=== PATIENT | female | born 1985 | race Caucasian/White ===

== ENCOUNTER 2017-06-18 16:22 | Emergency (ER) | payer SELFPAY ==
[~2017-06-18] VITALS: Ht 157.5 cm; Wt 75.8 kg
[~2017-06-18 16:22] MED LIST: FERR256T PO; PREN1TAB31 PO
[2017-06-18 16:25] VITALS: Ht 157.5 cm; Wt 75.8 kg
[2017-06-18 17:23] LABS: BASOPHILS % 0.3 % (0.0-2.0); EOSINOPHILS # 0.3 10^3/ul (0.0-0.5); EOSINOPHILS % 2.9 % (0.0-7.0); HEMATOCRIT 37.3 % (37.0-47.0); HEMOGLOBIN 12.8 g/dl (12.0-16.0); LYMPHOCYTES # 2.8 10^3/ul (0.8-2.9); LYMPHOCYTES % 29.2 % (15.0-51.0); MEAN CORPUSCULAR HEMOGLOBIN 29.9 pg (29.0-33.0); MEAN CORPUSCULAR HGB CONC 34.3 g/dl (32.0-37.0); MEAN CORPUSCULAR VOLUME 87.1 fl (82.0-101.0); MEAN PLATELET VOLUME 9.3 fl (7.4-10.4); MONOCYTE # 0.8 10^3/ul (0.3-0.9); MONOCYTES % 7.8 % (0.0-11.0); NEUTROPHIL # 5.8 10^3/ul (1.6-7.5); NEUTROPHILS % 59.4 % (39.0-77.0); PLATELET COUNT 346 10^3/UL (140-415); RED BLOOD COUNT 4.28 10^6/ul (4.20-5.40); RED CELL DISTRIBUTION WIDTH 12.2 % (11.5-14.5); WHITE BLOOD COUNT 9.7 10^3/ul (4.8-10.8)
[2017-06-18 17:46] LABS: ADD UMIC YES; UR ASCORBIC ACID 40 mg/dL (NEGATIVE); UR BACTERIA FEW /HPF (NONE SEEN); UR BILIRUBIN (Dip) NEGATIVE (NEGATIVE); UR BLOOD (Dip) NEGATIVE (NEGATIVE); UR CLARITY CLOUDY (CLEAR); UR COLOR YELLOW (YELLOW); UR GLUCOSE (Dip) NEGATIVE (NEGATIVE); UR KETONES (Dip) NEGATIVE (NEGATIVE); UR LEUKOCYTE ESTERASE (Dip) NEGATIVE Leu/ul (NEGATIVE); UR MUCUS FEW /HPF (NONE SEEN); UR NITRITE (Dip) NEGATIVE (NEGATIVE); UR RBC 2 /HPF (0-5); UR SPECIFIC GRAVITY (Dip) 1.018 (1.003-1.030); UR SQUAMOUS EPITHELIAL CELL FEW /HPF (FEW); UR TOTAL PROTEIN (Dip) NEGATIVE (NEGATIVE); UR UROBILINOGEN (Dip) NEGATIVE (NEGATIVE)
--- NOTE | 2017-06-18 17:46 | RADRPT ---
PROCEDURE: OBSTETRICAL ULTRASOUND WITH ENDOVAGINAL IMAGES CLINICAL INDICATION: no FHT on doppler, viability TECHNIQUE: Multiple sonographic images of the pelvis were obtained utilizing a transabdominal and endovaginal technique. The images were reviewed on a PACS workstation. COMPARISON: None. LMP: 04/10/2017 FINDINGS: There is a single live intrauterine with heart rate of 179 beats per minute, mean sa c diameter of 4.06 cm, yolk sac, and crown-rump length of 2.97 cm which is consistent with a gestati onal age of 9 weeks, 6 days . The estimated date of delivery by ultrasound is 01/15/2018 . The estimated gestational age by LMP is 9 weeks, 6 days . The estimated date of delivery by LMP is 01/15/2018 . There is a heterogeneous hypoechoic and hypovascular lesion adjacent to the gestational sac measurin g 2.7 x 1.8 x 2.4 cm consistent with a subchorionic hemorrhage. The right ovary measures 3.6 x 1.5 x 1.7 cm. The left ovary is not identified. There is normal vascu lar flow in the right ovary. No significant ovarian lesions are seen. No significant pelvic free fluid is identified. IMPRESSION: Single live intrauterine consistent with a gestational age of 9 weeks, 6 days . The estimated date of delivery is 01/15/2018 . Dating by ultrasound is consistent with dating by LMP. Normal heart rate of 179 beats per minute. 2.7 cm subchorionic hemorrhage. Nonvisualization of the left ovary. RPTAT: EE Physician Lovely Date Time Electronically viewed and signed by Physician Lovely on 06/18/2017 17:46 /
--- NOTE | 2017-06-18 18:47 | ERD ---
ER Documentation Chief Complaint Chief Complaint Ultrasound was done in clinic, no heart beat. Follow up. 14 wks preg HPI 31-year-old female is sent here by her clinic for a OB ultrasound. Patient stated that she was told she is 14 weeks at the clinic, and they could not hear heart tone Doppler during her visit today. Patient is , she did not remember when her LMP was. Denies fever or chills. Denies pelvic pain. Denies vaginal bleeding. ROS All systems reviewed and are negative except as per history of present illness. Medications Home Meds Reported Medications Ferrous Gluconate (Iron) 256 Mg Tablet, 256 MG PO DAILY 06/01/13 Vits #90-Iron Fum-FA ( Formula) 1 Each Tablet, 1 EACH PO DAILY 06/01/13 Allergies Allergies: Coded Allergies: No Known Allergy (Unverified , NKA, 12/01/12) PMhx/Soc History of Surgery: Yes (HERNIA) Anesthesia Reaction: No Hx Neurological Disorder: No Hx Respiratory Disorders: No Hx Cardiac Disorders: No Hx Psychiatric Problems: No Hx Miscellaneous Medical Probl: No Hx Alcohol Use: No Hx Substance Use: No Hx Tobacco Use: No Physical Exam Vitals Vital Signs Date Time Temp Pulse Resp B/P Pulse Ox O2 Delivery O2 Flow Rate FiO2 06/18/17 16:25 99.1 88 18 125/72 100 Physical Exam General: Well-developed, well-nourished, conscious and coherent, in no distress Skin: Warm and dry without rash, good texture and turgor Head: Normocephalic without evidence of trauma Eyes: Sclera and conjunctivae normal; pupils equal, round, and reactive to light; extraocular movements are intact Chest: Normal AP diameter. Good expansion without retractions. Nontender. Lungs are clear to auscultate bilaterally with good tidal volume Heart: Regular rate and rhythm. No murmur, rub, or gallops heard Abdomen: Soft and nontender without masses, guarding, or rebound. Bowel sounds are active. No hepatosplenomegaly Back: Without spinal or CVA tenderness Pelvis: Nontender to palpation and stable to compression Extremities: Full range of motion. Good strength bilaterally. No clubbing, cyanosis, or edema. Peripheral pulses are intact. Sensation intact Neuro: Alert and oriented 4, GCS 15. Cranial nerves grossly intact. Motor and sensory exams nonfocal. Moves all extremities. Speech clear. Gait normal Result Diagram: 06/18/17 1712 Results 24 hrs Laboratory Tests Test 06/18/17 17:12 06/18/17 17:14 White Blood Count 9.710^3/ul Red Blood Count 4.2810^6/ul Hemoglobin 12.8g/dl Hematocrit 37.3% Mean Corpuscular Volume 87.1fl Mean Corpuscular Hemoglobin 29.9pg Mean Corpuscular Hemoglobin Concent 34.3g/dl Red Cell Distribution Width 12.2% Platelet Count 16678^3/UL Mean Platelet Volume 9.3fl Neutrophils % 59.4% Lymphocytes % 29.2% Monocytes % 7.8% Eosinophils % 2.9% Basophils % 0.3% Nucleated Red Blood Cells % 0.0/100WBC Neutrophils # 5.810^3/ul Lymphocytes # 2.810^3/ul Monocytes # 0.810^3/ul Eosinophils # 0.310^3/ul Basophils # 0.010^3/ul Nucleated Red Blood Cells # 0.010^3/ul Beta HCG, Quantitative 79742.0mIU/ml Urine Color YELLOW Urine Clarity CLOUDY Urine pH 6.0 Urine Specific [place] 1.018 Urine Ketones NEGATIVEmg/dL Urine Nitrite NEGATIVEmg/dL Urine Bilirubin NEGATIVEmg/dL Urine Urobilinogen NEGATIVEmg/dL Urine Leukocyte Esterase NEGATIVELeu/ul Urine Microscopic RBC 2/HPF Urine Microscopic WBC 4/HPF Urine Squamous Epithelial Cells FEW/HPF Urine Bacteria FEW/HPF Urine Mucus FEW/HPF Urine Hemoglobin NEGATIVEmg/dL Urine Glucose NEGATIVEmg/dL Urine Total Protein NEGATIVEmg/dl PROCEDURE: OBSTETRICAL ULTRASOUND WITH ENDOVAGINAL IMAGES CLINICAL INDICATION: no FHT on doppler, viability TECHNIQUE: Multiple sonographic images of the pelvis were obtained utilizing a transabdominal and endovaginal technique. The images were reviewed on a PACS workstation. COMPARISON: None. LMP: 04/10/2017 FINDINGS: There is a single live intrauterine with heart rate of 179 beats per minute, mean sac diameter of 4.06 cm, yolk sac, and crown-rump length of 2.97 cm which is consistent with a gestational age of 9 weeks, 6 days . The estimated date of delivery by ultrasound is 01/15/2018 . The estimated gestational age by LMP is 9 weeks, 6 days . The estimated date of delivery by LMP is 01/15/2018 . There is a heterogeneous hypoechoic and hypovascular lesion adjacent to the gestational sac measuring 2.7 x 1.8 x 2.4 cm consistent with a subchorionic hemorrhage. The right ovary measures 3.6 x 1.5 x 1.7 cm. The left ovary is not identified. There is normal vascular flow in the right ovary. No significant ovarian lesions are seen. No significant pelvic free fluid is identified. IMPRESSION: Single live intrauterine consistent with a gestational age of 9 weeks , 6 days . The estimated date of delivery is 01/15/2018 . Dating by ultrasound is consistent with dating by LMP. Normal heart rate of 179 beats per minute. 2.7 cm subchorionic hemorrhage. Nonvisualization of the left ovary. RPTAT: EE Physician Lovely Date Time Electronically viewed and signed by Physician Lovely on 06/18/2017 17:46 RA/ CC: DAVID RODGERS [employer] ENGINEERING CONSULTANT Procedures/MDM ED course: CBC: Unremarkable. Beta hC.0 UA: Unremarkable. Blood type: B+. RhoGAM is not indicated for patient. OB ultrasound: Single live intrauterine consistent with a gestational age of 9 weeks 6 days. heart rate 179 bpm. 2.5 cm subchorionic hemorrhage. Medical decision-making: Well-appearing 31-year-old female presented ED for OB ultrasound. She was told by the clinic that she was 14 weeks . However on OB ultrasound, it was determined that she is 9 weeks 6 days. I advised patient that it is not unusual to no hearing heart tones on Doppler at this gestational age. A subchorionic hemorrhage is noted on ultrasound, patient is Rh positive, RhoGam is not indicated. Patient is provided without testing results, and advised follow-up with her PCP. Medications on discharge: Tylenol. Follow-up: Primary care provider in 2-3 days or return to ED if worse. Departure Diagnosis: Primary Impression: Normal IUP (intrauterine ) on ultrasound Trimester: first trimester Qualified Code: Z34.91 - Normal intrauterine on ultrasound in first trimester Condition: Stable Patient Instructions: , Established, Normal Symptoms Referrals: [facility] Usted se coleman hecho un examen mdico de control que le indica que no est en gabe condicin que requiera tratamiento urgente en el Departamento de Emergencia. Un estudio ms profundo y el tratamiento de parker condicin pueden esperar sin ningn riesgo hasta que usted sea atendida/o en el consultorio de parker mdico o gabe cl anabelle. Es responsabilidad suya arreglar gabe tessie para el seguimiento del fritz. MANEJO DE CONDICIONES NO URGENTES EN EL FUTURO 1) Si usted tiene un mdico de atencin primaria: Usted debera llamar a parker mdico de atencin primaria antes de venir al departamento de emergencia. Despus de las horas de consultorio, parker doctor o parker asociado/a est disponible por telfono. El mdico o enfermero de tashia en el servicio telefnico puede asesorarle por mika medio para atender el problema, o fritz contrario se puede programar gabe tessie. 2) Si usted no tiene un mdico de atencin primaria: Llame al mdico o clnica de referencia que aparece abajo dmeetrice las horas de consultorio para hacer gabe tessie para que le vean. CLINICAS: [facility] [phone] [facility] [phone] [facility] [phone] [address] [facility]. [facility] [phone] [facility] [phone] [facility]. [phone] [address] [employer] [place] [id number] [facility] [address] [place] [address] OFFICE FAX , ELY[place] [address] [place] [address] [address] MAURICIO, [place] [address] [place] [address] DR OSB[place]NE, [facility] [address] [facility], [address], [facility] [address] [address] [facility] [address] [place] [address] [facility] [address] [place] [address] [phone] [facility] [address] - [address] PICKENS, [place] [address], [place] [address] DR VILLARREAL, IV[place] [address] [facility]. [address], [place] [address] [address] PUCKETT, FARID [address] [place] [address] Additional Instructions: Llame al doctor MAANA y candy gabe TESSIE PARA DENTRO DE 2-3 PACHECO.Dgale a la secretaria que nosotros le instruimos hacer esta tessie.Avise o llame si parker condicin se empeora antes de la tessie. Regresa aqui si peor o no mejor. DAVID RODGERS. AVEL Jun 18, 2017 18:47
[2017-06-18 18:48] VITALS: BP 114/72; PULSE 85; RESP 20; TEMP 98.3
== END 2017-06-18 18:48 | disposition home or self-care (01) ==
LOC: FTE 16:22
DX: O36.8311 Maternal care for abnormalities of the fetal heart rate or rhythm, first trimester, fetus 1 (principal); R10.2 Pelvic and perineal pain; Z3A.09 9 weeks gestation of pregnancy
CPT/HCPCS: 36415; 76805; 81001; 84702; 85025; 86900; 86901

== ENCOUNTER 2017-12-20 18:36 | Outpatient (CLI) | END 2017-12-21 04:35 | disposition home or self-care (01) ==

== ENCOUNTER 2017-12-24 20:05 | Outpatient (CLI) | END 2017-12-24 21:43 | disposition home or self-care (01) ==

== ENCOUNTER 2018-01-12 17:05 | Inpatient (IN) | END 2018-01-15 12:30 | disposition home or self-care (01) | DRG 775 ==